=== PATIENT | female | born 1955 | race Two or more races ===

== ENCOUNTER 2023-10-10 22:10 | Emergency (ER) | payer OTHER ==
[~2023-10-10] VITALS: Ht 157.5 cm; Wt 108.9 kg
[2023-10-10 23:55] LABS: HEMATOCRIT 37.7 % (36.0-45.00); HEMOGLOBIN 12.5 g/dL (12.0-15.00); MEAN CELL VOLUME 85.9 fL (80.00-100.00); MEAN CORPUSCULAR HEMOGLOBIN 28.4 pg (27.00-32.0); MEAN CORPUSCULAR HGB CONC 33.1 g/dl (32.0-36.0); PLATELET COUNT 231 K/uL (150-450)
[2023-10-11 00:15] LABS: ALBUMIN 3.7 gm/dL (3.4-5.0); BILIRUBIN TOTAL 0.37 mg/dL (0.3-1.2); CALCIUM 9.4 mg/dL (8.5-10.1); CREATININE SERUM 1.14 mg/dL (0.55-1.02); GFR 47.4; GLOBULINA 3.4 G/DL (2.4-3.5); POTASSIUM 4.08 mEq/L (3.5-5.1); TOTAL PROTEIN 7.1 gm/dL (6.4-8.2)
[2023-10-11 00:18] LABS: ABG PO2 89.9 mmHg (80-100); ABG pCO2 42.1 mmHg (35-45); BASE EXCESS 3.4 mmol/l; SaO2 97.3 %; Tco2 29.3 mmol/l
[2023-10-11 07:15] LABS: allen test SATISFACTORY; o2 21 %; puncture site RADIAL LEFT
== END 2023-10-11 02:48 | disposition home or self-care (01) ==
LOC: ER 22:11
PROVIDERS: General Practice
DX: K21.9 Gastro-esophageal reflux disease without esophagitis (principal); R07.89 Other chest pain; I10 Essential (primary) hypertension